=== PATIENT | male | born 1975 | race Caucasian/White ===

== ENCOUNTER → 2017-03-14 | Outpatient (CLI) | payer BC ==
[~2017-03-14] MED LIST: ATEN25TA PO; NEXI20CA PO; NEXI40CA PO; PERC5TAB12 PO
== END ==
LOC: CPRE 14:32
PROVIDERS: ATTEND Specialist
DX: Z01.812 Encounter for preprocedural laboratory examination (principal); J34.2 Deviated nasal septum; J34.3 Hypertrophy of nasal turbinates; J32.0 Chronic maxillary sinusitis

== ENCOUNTER → 2017-03-16 | Day surgery (SDC) | payer BC ==
--- NOTE | 2017-03-15 09:01 | MH ---
cc: EDEN EUGENE DATE OF ADMISSION 03/16/2017 HISTORY This is a 41 year-old gentleman with nasal obstruction and chronic sinusitis for open septal reconstruction, turbinectomy, and bilateral maxillary antrostomy. PAST MEDICAL HISTORY Unremarkable PAST SURGICAL HISTORY Unremarkable REVIEW OF SYSTEMS, FAMILY HISTORY AND SOCIAL HISTORY Unremarkable PHYSICAL EXAMINATION A well-appearing patient no acute distress noted. HEENT: Exam reveals significant septal deviation, turbinate hypertrophy, mucopurulent secretions. LUNGS: Clear. HEART: Regular rate and rhythm. ABDOMEN: Soft and nontender. EXTREMITIES: Without cyanosis, clubbing or edema. NEUROLOGIC: Alert, oriented, nonfocal neurologic exam. IMPRESSION Patient with chronic sinusitis and nasal obstruction for surgical correction. Instructed method of surgery and possible complication include anesthetic complications, cardiac difficulty, pulmonary difficulty, stroke, or even . Surgical complications of bleeding, infection, risk of hemorrhage, decreased sensation, decreased sense of smell, recurrent sinusitis, granulation tissue, synechia formation, and septal perforation. The patient appeared to accept and understand the above-mentioned risks and benefits. In addition, no guarantees or warranties regarding outcome were given. We will therefore proceed with surgery. MD BEN Warner/SUNIL /8:43 AM 8:58 AM MTDD
[~2017-03-16] VITALS: Ht 177.8 cm; Wt 75.8 kg
[~2017-03-16] MED LIST changes: +*morphine SULFATE 8 MG/ML PERIprocedure ONLY ONE; +ACETAMINOPHEN 1000 MG/100 ML VIAL IV ONE; +ACETAMINOPHEN/HYDROcodone 325 MG/7.5 MG TAB PO PRN; +CHLORHEXIDINE GLUCONATE 2 % 1 PACK (2 CLOTHS) TOPICAL PRN; +EPINEPHrine HCL (1:1000) 30 MG/30 ML VIAL ONE; +FAMOTIDINE 20 MG/2 ML VIAL ONE; +INSULIN HUMAN REGULAR 1,000 UNITS/10 ML VIAL SQ PRN; +LACTATED RINGER'S 1000 ML IV PRN; +LIDOCAINE 1%/EPINEPHrine 1:100,000 SOLN 20 ML VIAL ONE; +METOPROLOL TARTRATE 25 MG TAB PO PRN; +MIDAZOLAM HCL 2 MG/2 ML VIAL ONE; +MORPHINE SULFATE 4 MG/ML INJ IV PUSH PRN; -NEXI20CA PO; +ONDANSETRON HCL 4 MG/2 ML VIAL IV PUSH ONE; +ONDANSETRON HCL 4 MG/2 ML VIAL IV PUSH PRN; -PERC5TAB12 PO; +POVIDONE IODINE 5% (ANTISEPSIS KIT) 4 APPLICATIONS EACH NARE PRN; +PROPOFOL 200 MG/20 ML AMP IV ONE; +SODIUM CHLORID 0.9% 500 ML IV PRN; +fentaNYL CITRATE 250 MCG/5 ML AMP ONE
[2017-03-16 06:35] VITALS: BP 150/94; PULSE 56; RESP 18; TEMP 96.6; O2SAT 97
[2017-03-16 10:27] VITALS: BP 136/84; PULSE 69; RESP 18; TEMP 97.6; O2SAT 95
--- NOTE | 2017-03-20 08:48 | MP ---
cc: EDEN EUGENE DATE OF SURGERY: 03/16/2017. PREOPERATIVE DIAGNOSIS: Nasal obstruction with chronic sinusitis. OPERATIVE PROCEDURE PERFORMED: Open septal reconstruction, left and right inferior turbinectomy, submucous resection and left and right endoscopic maxillary antrostomy. ANESTHESIA: General. ESTIMATED BLOOD LOSS: Minimal. COMPLICATIONS: No complications. OPERATING SURGEON: Dr. Eugene. DESCRIPTION OF THE PROCEDURE IN DETAIL: Prepped, draped usual fashion. 1% Xylocaine 1:100,000 epinephrine was injected into the nasal septum, inferior turbinates and middle meatus bilaterally. 1:1000 adrenaline soaked pledgets placed and then removed. A mucoperichondrial incision was made on the right side of the nose, septum mucoperichondrial flap elevated. The deviated cartilage and bone were isolated and removed reducing the nasal fracture and improving nasal airway. Mucoperichondrial flap was reapproximated. Portion of the inferior turbinate bilaterally was submucosally vaporized using multiple insertions of the Coblator probe on power level IV. Natural antrostomy identified and enlarged endoscopically with a curved suction on the left and a curved suction on the right. Minimal bleeding was noted and bilateral Nasopore packing was placed. The patient tolerated the procedure well. MD BEN Warner/GISELA /7:59 AM /8:34 AM
== END | disposition home or self-care (01) ==
LOC: HSDC 06:00
PROVIDERS: ATTEND Specialist
DX: J34.89 Other specified disorders of nose and nasal sinuses (principal); J32.9 Chronic sinusitis, unspecified
CPT/HCPCS: 00160; 30140; 30520; 31267; J0131; J0171; J2250; J2270; J2405; J3010; J7120

== ENCOUNTER 2018-02-01 22:23 | Emergency (ER) | payer BC ==
[~2018-02-01] VITALS: Ht 177.8 cm; Wt 76.0 kg
[~2018-02-01 22:23] MED LIST changes: -*morphine SULFATE 8 MG/ML PERIprocedure ONLY ONE; -ACETAMINOPHEN 1000 MG/100 ML VIAL IV ONE; -ACETAMINOPHEN/HYDROcodone 325 MG/7.5 MG TAB PO PRN; -CHLORHEXIDINE GLUCONATE 2 % 1 PACK (2 CLOTHS) TOPICAL PRN; -EPINEPHrine HCL (1:1000) 30 MG/30 ML VIAL ONE; -FAMOTIDINE 20 MG/2 ML VIAL ONE; -INSULIN HUMAN REGULAR 1,000 UNITS/10 ML VIAL SQ PRN; -LACTATED RINGER'S 1000 ML IV PRN; -LIDOCAINE 1%/EPINEPHrine 1:100,000 SOLN 20 ML VIAL ONE; -METOPROLOL TARTRATE 25 MG TAB PO PRN; -MIDAZOLAM HCL 2 MG/2 ML VIAL ONE; -MORPHINE SULFATE 4 MG/ML INJ IV PUSH PRN; -ONDANSETRON HCL 4 MG/2 ML VIAL IV PUSH ONE; -ONDANSETRON HCL 4 MG/2 ML VIAL IV PUSH PRN; -POVIDONE IODINE 5% (ANTISEPSIS KIT) 4 APPLICATIONS EACH NARE PRN; -PROPOFOL 200 MG/20 ML AMP IV ONE; -SODIUM CHLORID 0.9% 500 ML IV PRN; -fentaNYL CITRATE 250 MCG/5 ML AMP ONE
[2018-02-01 22:51] VITALS: BP 147/81; PULSE 61; RESP 18; TEMP 97.7; O2SAT 100
[2018-02-02] MEDS ORDERED: SODIUM CHLOR 0.9% 1000 ML INJ 1,000 ML IV SCH (00:02)
[2018-02-02] MEDS ORDERED: ONDANSETRON HCL 4 MG/2 ML VIAL IVP ONE (00:15)
[2018-02-02] MEDS ORDERED: SODIUM CHLORIDE 0.9% FLUSH 10 ML FLUSH IV FLUSH PRN (00:15)
[2018-02-02] MEDS ORDERED: MORPHINE SULFATE 4 MG/ML INJ IV PUSH ONE (00:15)
--- NOTE | 2018-02-02 00:16 | PD ---
HPI Chief Complaint: Foreign Body Time Seen by Provider: 23:57 Travel History International Travel<30 days: No Contact w/Intl Traveler<30days: No Traveled to known affect area: No History of Present Illness HPI 42-year-old male complains of food bolus obstruction of the esophagus. Patient states that he has history of esophageal stricture at that required esophageal dilatation frequently. Patient states that he ate steak this evening and got stuck in his throat. Patient complained of food bolus stuck in the distal esophagus substernal area. Patient states that he is unable to keep any fluids or saliva down. Patient denies any chest pain or shortness of breath. Patient has a history of hypertension. Patient has history GERD, status post cholecystectomy in the past. PFSH Past Medical History Cancer: No Cardiovascular Problems: No Diabetes: No Endocrine: No Gastrointestinal Disorders: Yes (GALL BLADDER REMOVED, UPPER ESOPHAGEAL STRICTURE, GERD) Genitourinary: No Headaches: Yes Hepatitis: No Hiatal Hernia: Yes Hypertension: Yes Immune Disorder: No Musculoskeletal: Yes (HX OF FEMUR CHRISTIAN ) Neurologic: No Psychiatric: No Reproductive: No Respiratory: No Migraines: Yes Thyroid Disease: No Influenza Vaccination: No Past Surgical History Abdominal Surgery: Yes (CHOLECYSTECTOMY) AICD: No Cardiac Surgery: No Cholecystectomy: Yes Ear Surgery: No Endocrine Surgery: No Eye Surgery: No Genitourinary Surgery: No Joint Replacement: No Oral Surgery: No Pacemaker: No Thoracic Surgery: No Other Surgery: Yes (GALL BLADDER REMOVED, CHRISTIAN IN FEMUR, UPPER ESOPHAGEAL STRECH X 5) Social History Alcohol Use: No Tobacco Use: Yes (1 PACK A DAY FOR 12 YEARS) Substance Use: No Allergies-Medications (Allergen,Severity, Reaction): Coded Allergies: milk (Unverified Allergy, Unknown, 02/01/18) Reported Meds & Prescriptions Reported Meds & Active Scripts Active Reported Atenolol 25 Mg Tab 50 Mg PO DAILY Nexium (Esomeprazole DR) 40 Mg Capdr 40 Mg PO DAILY Review of Systems General / Constitutional: No: Fever Eyes: No: Visual changes HENT: No: Headaches Cardiovascular: No: Chest Pain or Discomfort Respiratory: No: Shortness of Breath Gastrointestinal: No: Abdominal Pain Genitourinary: No: Dysuria Musculoskeletal: No: Pain Skin: No Rash Neurologic: No: Weakness Psychiatric: No: Depression Endocrine: No: Polydipsia Hematologic/Lymphatic: No: Easy Bruising Physical Exam Narrative GENERAL: Well-nourished, well-developed patient. SKIN: Focused skin assessment warm/dry. HEAD: Normocephalic. EYES: No scleral icterus. No injection or drainage. NECK: Supple, trachea midline. No JVD or lymphadenopathy. CARDIOVASCULAR: Regular rate and rhythm without murmurs, gallops, or rubs. RESPIRATORY: Breath sounds equal bilaterally. No accessory muscle use. GASTROINTESTINAL: Abdomen soft, non-tender, nondistended. MUSCULOSKELETAL: No cyanosis, or edema. BACK: Nontender without obvious deformity. No CVA tenderness. Neurologic exam normal. Data Data Last Documented VS Vital Signs Date Time Temp Pulse Resp B/P (MAP) Pulse Ox O2 Delivery O2 Flow Rate FiO2 02/01/18 22:51 97.7 61 18 147/81 (103) 100 Orders Orders Basic Metabolic Panel (Bmp) (02/02/18 00:02) Complete Blood Count With Diff (02/02/18 00:02) Iv Access Insert/Monitor (02/02/18 00:02) Ecg Monitoring (02/02/18 00:02) Oximetry (02/02/18 00:02) Morphine Inj (Morphine Inj) (02/02/18 00:15) Ondansetron Inj (Zofran Inj) (02/02/18 00:15) Sodium Chlor 0.9% 1000 Ml Inj (Ns 1000 M (02/02/18 00:02) Sodium Chloride 0.9% Flush (Ns Flush) (02/02/18 00:15) MDM Medical Decision Making Medical Screen Exam Complete: Yes Emergency Medical Condition: Yes Differential Diagnosis Differential diagnosis including food bolus obstruction esophagus. Narrative Course 42-year-old male with food bolus obstruction esophagus. History of esophageal stricture. Normal saline solution 1 25 cc an hour. Morphine 2 mg IV. Zofran 4 mg IV. Patient refused glucagon IV. I spoke with Dr. Fox, card stripper. Patient will be taken to GI lab for endoscopy. Diagnosis Primary Impression: Esophageal obstruction due to food impaction Admitting Information Admitting Physician Requests: Observation Rodney Machado MD February 02, 2018 00:15
[2018-02-02 00:58] VITALS: BP 169/97; PULSE 67; RESP 16; O2SAT 97
[2018-02-02 01:21] LABS: AUTOMATED NEUTROPHIL # 7.8 TH/MM3 (1.8-7.7); BASOPHIL # 0.1 TH/MM3 (0-0.2); BASOPHIL % 1.3 % (0.0-2.0); EOSINOPHIL # 0.2 TH/MM3 (0-0.4); EOSINOPHIL % 1.8 % (0.0-4.0); HEMATOCRIT 47.2 % (39.0-51.0); HEMOGLOBIN 17.1 GM/DL (13.0-17.0); LYMPH % 20.9 % (9.0-44.0); LYMPHOCYTE # 2.3 TH/MM3 (1.0-4.8); MEAN CORPUSCULAR HEMOGLOBIN 30.8 PG (27.0-34.0); MEAN PLATELET VOLUME 8.4 FL (7.0-11.0); MONO % 4.8 % (0.0-8.0); MONOCYTE # 0.5 TH/MM3 (0-0.9); NEUT % 71.2 % (16.0-70.0); PLATELET COUNT 222 TH/MM3 (150-450); RED BLOOD COUNT 5.55 MIL/MM3 (4.50-5.90); RED CELL DISTRIBUTION WIDTH 12.9 % (11.6-17.2); WHITE BLOOD COUNT 10.9 TH/MM3 (4.0-11.0)
[2018-02-02 01:32] LABS: MEAN CORPUSCULAR HGB CONC 36.2 % (32.0-36.0)
[2018-02-02 01:42] LABS: BICARBONATE 24.3 MEQ/L (21.0-32.0); CALCIUM 9.2 MG/DL (8.5-10.1); CREATININE 1.15 MG/DL (0.60-1.30)
--- NOTE | 2018-02-02 01:46 | GIPROC ---
[facility] [address] [facility]. [facility], [address] EGD WITH DILATION PROCEDURE REPORT EXAM DATE: 02/02/2018 PATIENT NAME: Ernesto Caruso MR#: [id number] BIRTHDATE: 1975 ATTENDING: Ruth Fox MD ORDER #: [id number] ORTHOPAEDIC TECHNOLOGIST: Chris Eason and Connie Reaves STATUS: inpatient INDICATIONS: The patient is a 42 yr old male here for an EGD with dilation due to dysphagia fb esophagus PROCEDURE PERFORMED: EGD w/ dilation of esophagus via guidewire egd with fb removal MEDICATIONS: None and Per Anesthesia. TOPICAL ANESTHETIC: none CONSENT: The patient understands the risks and benefits of the procedure and understands that these risks include, but are not limited to: sedation, allergic reaction, infection, perforation and/or bleeding. Alternative means of evaluation and treatment include, among others: physical exam, x-rays, and/or surgical intervention. The patient elects to proceed with this endoscopic procedure. medical equipment was checked for proper function. Hand hygiene and appropriate measures for infection prevention was taken. After the risks, benefits and alternatives of the procedure were thoroughly explained, Informed consent was verified, confirmed and timeout was successfully executed by the treatment team. The patient was anesthetized with topical anesthesia and the Pentax EG-[id number] endoscope was introduced through the mouth and advanced to the second portion of the duodenum. The instrument was slowly withdrawn as the mucosa was fully examined. Food bolus in distal esophagus-removed with net stricture distal esophagus-s/p dilatation using Savary dilator 16. Dilation was performed at gastroesophageal junction. DILATOR: SIZE(S): RESISTANCE: HEME: APPEARANCE: Dilator: Savary over guidewire Size(s): 16 COMMENT: Retroflexed views revealed a hiatal hernia ADVERSE EVENTS: There were no complications. IMPRESSIONS: 1. Food bolus in distal esophagus-removed with net stricture distal esophagus-s/p dilatation using Savary dilator 16 2. Retroflexed views revealed a hiatal hernia RECOMMENDATIONS: 1. Await biopsy results. Biopsy results will not be ready for 7-10 days. If you don't hear from us in two weeks, call our office for biopsy results. 2. Anti-reflux regimen 3. Continue PPI 4. Dilatations PRN REPEAT EXAM: Return 1 month EGD with dilatation Ruth Fox MD eSigned: Ruth Fox MD 02/02/2018 1:45 AM cc: PATIENT NAME: Ernesto Caruso MR#: [id number]
[2018-02-02 02:15] VITALS: BP 136/90
[2018-02-02] MEDS ORDERED: DO NOT ADM ANY ANTICOAGULANT DRUGS PRN (02:15)
[2018-02-02] MEDS ORDERED: PROPOFOL 200 MG/20 ML AMP IV ONE (02:29)
[2018-02-02] MEDS ORDERED: LIDOCAINE HCL 1% PF 5 ML SYRINGE OTHER ONE (02:29)
[2018-02-02] MEDS ORDERED: SUCCINYLCHOLINE CHLORIDE 100 MG/5 ML SYRINGE IV PUSH ONE (02:29)
[2018-02-02 02:30] VITALS: PULSE 71; RESP 16; TEMP 97.9; O2SAT 96
--- NOTE | 2018-02-02 21:31 | MB ---
cc: Ruth Fox MD, Beatrice S MD DATE: 02/02/2018 REASON FOR CONSULTATION: Esophageal foreign body, dysphagia, odynophagia, inability to tolerate p.o. HISTORY OF PRESENT ILLNESS: Mr. Caruso is a 42-year-old gentleman with history of esophageal stricture, status post dilatation multiple times. Last dilatation was in 08/2017. The patient stated he was eating steak with rice and he felt that the food got stuck into his esophagus. He is complaining of sensation of foreign body in the distal esophagus and unable to keep saliva down. He came to the emergency room for further evaluation and treatment. Denies any fever, chills or weight loss. PAST MEDICAL HISTORY: Reflux, recurrent esophageal stricture, migraine headaches, high blood pressure. PAST SURGICAL HISTORY: Cholecystectomy, a richard in the femur, multiple dilatations. SOCIAL HISTORY: Denies alcohol use. Smokes 1 pack of cigarettes for the last 12 years. Denies any drug use. ALLERGIES: MILK. MEDICATIONS: 1. Atenolol. 2. Nexium FAMILY HISTORY: Denies any family history of colon cancer or any other GI pathology. REVIEW OF SYSTEMS: CONSTITUTIONAL: Denies any fever, chills, weight loss or weight gain. ENT: No alteration of baseline hearing or visual activity. PULMONARY: Denies any chest pain, shortness of breath. GASTROINTESTINAL: As above. GENITOURINARY: Denies dysuria, hematuria. HEMATOLOGIC: Denies any history of anemia or bleeding disorder. SKIN: No alteration of baseline skin lesion. NEUROLOGIC: No history of TIA or CVA kind of symptoms. PHYSICAL EXAMINATION: GENERAL: He is sitting comfortable in bed at this time, except that he is unable to swallow his saliva. VITAL SIGNS: Suggestive of blood pressure 136/90, pulse 72, respirations 15, saturation 96. HEENT: PERRLA NECK: No JVD. No lymphadenopathy. CHEST: Clear to auscultation and palpation. HEART: S1, S2. No murmur. ABDOMEN: Soft, nontender. Bowel sounds are present. 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 No focal signs identified. LABORATORY DATA: His white count 10.9, hemoglobin 17.1, platelets 222. PT INR not done. Chemistry - BMP essentially normal, mild elevation in glucose 130. IMAGING STUDIES: No imaging was done. ASSESSMENT: Mr. Caruso is a 42-year-old gentleman with history of esophageal stricture, admitted to the emergency room with inability to swallow due to most likely esophageal foreign body. RECOMMENDATION: Emergency endoscopy will be scheduled. Risks and benefits were discussed with the patient and he is agreeing with it. PPIs, nothing by mouth discussed with the patient and his . Thank you again. We will continue to follow the patient along with you. Ruth Fox MD BSB/SA , 07:32 PM , 09:31 PM MTDTristin
== END 2018-02-02 02:30 | disposition home or self-care (01) ==
LOC: NEPC 22:23 → NEDA 02-02 00:18 → UNDOADMOB 02-02 00:18 → UNDODISOB 02-02 02:30 → NEPC 02-02 02:30
DX: T18.128A Food in esophagus causing other injury, initial encounter (principal); K44.9 Diaphragmatic hernia without obstruction or gangrene
CPT/HCPCS: 00731; 43247; 43248; 80048; 85025; 96374; 96375; 99284; C1769; J0330; J2270; J2405; J3010; J7030